=== PATIENT | male | born 1985 | race Two or more races ===

== ENCOUNTER 2024-12-27 09:48 | Emergency (ER) | payer OTHER ==
[~2024-12-27] VITALS: Ht 177.8 cm; Wt 181.0 kg
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
[2024-12-27] MEDS: ACETAMINOPHEN 325 MG TAB PO ONE (10:15)
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
[2024-12-27] MEDS ORDERED: METH-1182 PO (11:22)
[2024-12-27] MEDS ORDERED: IBUP-1456 PO (11:22)
[2024-12-27 11:35] VITALS: BP 170/83; PULSE 106; RESP 20; TEMP 98.3; O2SAT 97
== END 2024-12-27 11:36 | disposition home or self-care (01) ==
LOC: ER 09:48 → EDBD 09:48 → ER 11:36
DX: S16.1XXA Strain of muscle, fascia and tendon at neck level, initial encounter (principal); S39.012A Strain of muscle, fascia and tendon of lower back, initial encounter; V89.2XXA Person injured in unspecified motor-vehicle accident, traffic, initial encounter; Y93.89 Activity, other specified; Y92.410 Unspecified street and highway as the place of occurrence of the external cause; Y99.8 Other external cause status
CPT/HCPCS: 72040; 72100